=== PATIENT | female | born 1970 | race Caucasian/White ===

== ENCOUNTER 2016-04-22 11:19 | Emergency (ER) | payer SELFPAY | END 2016-04-22 12:48 | disposition home or self-care (01) | LOC: ED 11:19 | DX: J11.1 Influenza due to unidentified influenza virus with other respiratory manifestations (principal) ==

== ENCOUNTER 2016-07-21 19:10 | Emergency (ER) | payer OTHER ==
[2016-07-21] MEDS ORDERED: IBUPROFEN 800 MG TABLET ONE (20:03)
[2016-07-21] MEDS ORDERED: HYDROCODONE/ACETAMINOPHEN 5/325MG TABLET ONE (20:04)
[2016-07-21] MEDS ORDERED: DIAZEPAM 5 MG TABLET ONE (20:04)
== END 2016-07-21 20:25 | disposition home or self-care (01) ==
LOC: ED 19:10
DX: M54.5 Low back pain (principal); F17.210 Nicotine dependence, cigarettes, uncomplicated
CPT/HCPCS: 99283 ×2; A9270 ×3